=== PATIENT | male | born 1950 | race Caucasian/White ===

== ENCOUNTER → 2017-07-04 | Outpatient (CLI) | payer MEDICARE, MEDICAID ==
--- NOTE | 2017-07-04 14:29 | Diagnostic Imaging Report ---
PROCEDURE: CT abdomen and pelvis without contrast. TECHNIQUE: Multiple contiguous axial images were obtained through the abdomen and pelvis without the use of intravenous contrast. INDICATION: Hematuria. COMPARISON: No prior studies are available for comparison. FINDINGS: The lung bases are clear. No liver mass is identified. The gallbladder is unremarkable. Pancreas and spleen are unremarkable. No adrenal mass is identified. No definite renal calculi or hydronephrosis is detected. The aorta is heavily calcified but nonaneurysmal. No definite ureteral calculi are seen. The bladder does contain several small diverticula. Diverticulum noted anteriorly near the dome measures 15 mm. A posterior diverticulum near the dome measures 20 mm. A left-sided posterior diverticulum near the dome measures 15 mm. No bladder calculi or bladder mass is detected. No wall thickening is detected. The small and large bowel loops are normal caliber. There is no ascites. No acute inflammatory process is seen. The prostate is unremarkable. No lymphadenopathy is detected. IMPRESSION: 1. No evidence of urinary tract calculi or obstruction. 2. Multiple bladder diverticula. 3. No acute abnormality is seen. Dictated by: Dictated on workstation # [id number]
== END ==
LOC: RAD 11:18
PROVIDERS: ATTEND Urology
DX: N32.3 Diverticulum of bladder (principal); R31.9 Hematuria, unspecified
CPT/HCPCS: 74176